=== PATIENT | male | born 1965 | race African-American/Black ===

== ENCOUNTER 2022-12-14 03:57 | Day surgery (SDC) | payer OTHER ==
[2022-12-12 10:21] VITALS: BMI 34.2
[2022-12-14 12:22] LABS: INR 1.14 (0.83-1.09); PROTHROMBIN TIME (PATIENT) 13.2 SEC (9.7-13.0)
[2022-12-14] MEDS ORDERED: MIDAZOLAM HCL 2 MG/2 ML SINGLE DOSE VIAL ONE (13:01)
[2022-12-14] MEDS ORDERED: PROPOFOL 20 ML ONE (13:01)
[2022-12-14] MEDS ORDERED: ceFAZolin SODIUM 1 GM VIAL ONE (13:01)
[2022-12-14] MEDS ORDERED: ceFAZolin SODIUM 1 GM VIAL IVPB ONE (13:12)
[2022-12-14] MEDS ORDERED: ONDANSETRON 4 MG/2 ML VIAL ONE (13:35)
[2022-12-14] MEDS ORDERED: DEXAMETHASONE SOD PHOSPHATE 4 MG/1 ML VIAL ONE (13:35)
[2022-12-14] MEDS ORDERED: oxyCODONE HCL 5 MG TABLET PO PRN (15:16)
[2022-12-14] MEDS ORDERED: ONDANSETRON 4 MG/2 ML VIAL IVPUSH PRN (15:16)
[2022-12-14] MEDS ORDERED: LACTATED RINGERS SOLUTION 1,000 ML IV SCH (15:30)
[2022-12-14 17:20] VITALS: RESP 18
[2022-12-14 19:54] VITALS: BP 135/62; PULSE 76; TEMP 98.2
== END 2022-12-14 20:30 | disposition home or self-care (01) ==
LOC: JASU-SURG 03:57
PROVIDERS: ATTEND Urology
PROC: 0V503ZZ Destruction of Prostate, Percutaneous Approach (ICD-10-PCS; principal; 2022-12-14 13:00)
DX: C61 Malignant neoplasm of prostate (principal)
CPT/HCPCS: 55873; C2618; 36415; 85610; 94760; C1769